=== PATIENT | male | born 1985 | race American Indian/Alaskan Native ===

== ENCOUNTER 2017-02-12 02:12 | Emergency (ER) | payer OTHER ==
[2017-02-12] MEDS ORDERED: XYLOCAINE 1% 20 mL INFILTRATI ONE (02:55)
[2017-02-12 02:58] VITALS: BP 145/96
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
== END 2017-02-12 05:30 | disposition home or self-care (01) ==
LOC: EEVIPCON 02:12 → ED 02:12
DX: S01.01XA Laceration without foreign body of scalp, initial encounter (principal); F17.200 Nicotine dependence, unspecified, uncomplicated; F12.10 Cannabis abuse, uncomplicated; V89.2XXA Person injured in unspecified motor-vehicle accident, traffic, initial encounter; Y93.89 Activity, other specified; Y92.89 Other specified places as the place of occurrence of the external cause; Y99.8 Other external cause status
CPT/HCPCS: 70450; 72125; 99283